=== PATIENT | female | born 1945 | race Caucasian/White ===

== ENCOUNTER 2022-10-21 03:46 | Emergency (ER) | payer MEDICARE ==
[~2022-10-21] VITALS: Ht 154.9 cm; Wt 64.4 kg
[2022-10-21 04:05] VITALS: BP_SYST 141
[2022-10-21] MEDS ORDERED: MORPHINE 4 MG INJ. 4 MG/ML VIAL IVP ONE (04:30)
[2022-10-21] MEDS ORDERED: NACL 0.9% 1,000 ML IV ONE (04:30)
[2022-10-21] MEDS ORDERED: ONDANSETRON HCL 4 MG/2 ML VIAL IVP ONE (04:30)
[2022-10-21 04:45] LABS: HEMOGLOBIN 12.3 g/dL (12.0-16.0); LYMPHOCYTES # (AUTO) 0.7 K/uL (1.0-5.5); MEAN CORPUSCULAR HEMOGLOBIN 31 pg (27-31); MEAN CORPUSCULAR HGB CONC 34 % (32-36); MONOCYTES # (AUTO) 0.5 K/uL (0.0-1.0)
[2022-10-21 04:57] LABS: NEUTROPHILS % (AUTO) 86.5 % (40.0-70.0)
[2022-10-21 05:00] LABS: ANION GAP 8 (5-15); CALCIUM 8.5 mg/dL (8.4-11.0); CHLORIDE 103 mmol/L (98-107); CREATININE 0.74 mg/dL (0.55-1.30); GLUCOSE 80 mg/dL (70-99); UREA NITROGEN, BLOOD 11 mg/dL (8-21)
[2022-10-21 05:04] LABS: BASOPHILS % (AUTO) 0.2 % (0.0-2.0); HEMATOCRIT 36.6 % (36-48); LYMPHOCYTES % (AUTO) 7.7 % (20.5-51.5); MEAN CORPUSCULAR VOLUME 90 fL (79.0-98.0); MONOCYTES % (AUTO) 5.6 % (1.7-9.3); NEUTROPHILS # (AUTO) 7.9 K/uL (1.8-7.7); PLATELET COUNT (AUTO) 226 K/uL (130-430); RED BLOOD CELL COUNT(AUTO) 4.05 MIL/uL (4.2-6.2); RED CELL DISTRIBUTION WIDTH 13.2 % (9.0-15.0); WHITE BLOOD COUNT (AUTO) 9.1 K/uL (4.8-10.8)
[2022-10-21 05:05] LABS: ALANINE AMINOTRANSFERASE 22 U/L (12-78); ALBUMIN 3.5 g/dL (3.4-4.8); ASPARTATE AMINOTRANSFERASE 14 U/L (10-37); LIPASE 73 U/L (73-393); TOTAL BILIRUBIN 0.3 mg/dL (0.0-1.0)
[2022-10-21] MEDS ORDERED: TRAM50TA2 PO (07:10)
[2022-10-21] MEDS ORDERED: OMEP-268 PO (07:10)
[2022-10-21] MEDS ORDERED: MORPHINE 2 MG/ML INJ. SYRINGE IVP ONE (07:15)
[2022-10-21 07:39] LABS: BILIRUBIN,URINE NEGATIVE (NEGATIVE); CLARITY/URINE SL CLOUDY (CLEAR); COLOR,URINE YELLOW (YELLOW); GLUCOSE,URINE NEGATIVE (NEGATIVE); KETONES,URINE NEGATIVE (NEGATIVE); LEUKOCYTE ESTERASE ,URINE 2+ (NEGATIVE); NITRITE, URINE NEGATIVE (NEGATIVE); PH,URINE 7.5 (5.0-8.0); PROTEIN URINE NEGATIVE (NEGATIVE); UROBILINOGEN,URINE 0.2 (0.2-1.0)
[2022-10-21 07:40] LABS: BLOOD, URINE TRACE (NEGATIVE)
[2022-10-21 08:05] LABS: BACTERIA,URINE FEW /HPF (None Seen)
[2022-10-21 08:06] LABS: WBC,URINE 20-50 /HPF (0-3)
[2022-10-21] MEDS ORDERED: NITR-85 PO (08:50)
[2022-10-21] MEDS ORDERED: cefTRIAXone 1 GM in LIDOCAINE 1%, 20 ML MDV 2.1 ML IM ONE (09:00)
[2022-10-21 09:20] VITALS: BP_SYST 135
== END 2022-10-21 09:20 | disposition home or self-care (01) ==
LOC: SED 03:46
DX: R10.13 Epigastric pain (principal); R11.0 Nausea; E11.9 Type 2 diabetes mellitus without complications
CPT/HCPCS: 99285; 74177; 96374; 76705; 96375; 80053; 81000; 83690; 85025; 87086; 36415; 76376; 96376; 96372; J0696; J2001; J2405; J2270 ×2; J7030

== ENCOUNTER 2023-07-27 04:00 | Emergency (ER) | payer MEDICARE ==
[~2023-07-27] VITALS: Ht 172.7 cm; Wt 90.7 kg
[~2023-07-27 04:00] MED LIST: NITR-85 PO; OMEP-268 PO; TRAM50TA2 PO
[2023-07-27 04:02] VITALS: BP_SYST 115; PULSE 73; RESP 22; TEMP 97.6; O2SAT 96
[2023-07-27 04:51] LABS: ANION GAP 8 (5-15); CARBON DIOXIDE 29 mmol/L (23-29); CHLORIDE 99 mmol/L (98-107); CREATININE 0.74 mg/dL (0.55-1.30); GLUCOSE 137 mg/dL (74-106); POTASSIUM 3.5 mmol/L (3.5-5.1); SODIUM SERUM 136 mmol/L (136-145); UREA NITROGEN, BLOOD 15 mg/dL (8-21)
[2023-07-27 04:55] LABS: EOSINOPHILS % (AUTO) 0.1 % (0.0-4.0); HEMATOCRIT 35.2 % (36-48); HEMOGLOBIN 11.9 g/dL (12.0-16.0); LYMPHOCYTES # (AUTO) 0.7 K/uL (1.0-5.5); LYMPHOCYTES % (AUTO) 6.9 % (20.5-51.5); MEAN CORPUSCULAR HEMOGLOBIN 31 pg (27-31); MEAN CORPUSCULAR HGB CONC 34 % (32-36); MEAN CORPUSCULAR VOLUME 91 fL (79.0-98.0); MONOCYTES # (AUTO) 0.5 K/uL (0.0-1.0); MONOCYTES % (AUTO) 4.8 % (1.7-9.3); NEUTROPHILS # (AUTO) 8.4 K/uL (1.8-7.7); NEUTROPHILS % (AUTO) 88.2 % (40.0-70.0); PLATELET COUNT (AUTO) 223 K/uL (130-430); RED BLOOD CELL COUNT(AUTO) 3.89 MIL/uL (4.2-6.2); RED CELL DISTRIBUTION WIDTH 13.3 % (9.0-15.0); WHITE BLOOD COUNT (AUTO) 9.5 K/uL (4.8-10.8)
[2023-07-27 04:56] LABS: ALANINE AMINOTRANSFERASE 19 U/L (12-78); ALBUMIN 3.3 g/dL (3.4-4.8); ASPARTATE AMINOTRANSFERASE 20 U/L (10-37); BILIRUBIN,DIRECT 0.1 mg/dL (0.0-0.3); TOTAL BILIRUBIN 0.2 mg/dL (0.0-1.0); TOTAL PROTEIN, SERUM 6.8 g/dL (6.4-8.3)
[2023-07-27] MEDS: MORPHINE 4 MG INJ. 4 MG/ML VIAL IVP ONE (05:05)
[2023-07-27] MEDS: NACL 0.9% 1,000 ML IV ONE (05:08)
[2023-07-27 05:16] LABS: BILIRUBIN,URINE NEGATIVE (NEGATIVE); BLOOD, URINE NEGATIVE (NEGATIVE); CLARITY/URINE CLEAR (CLEAR); COLOR,URINE YELLOW (YELLOW); GLUCOSE,URINE NEGATIVE (NEGATIVE); KETONES,URINE TRACE (NEGATIVE); LEUKOCYTE ESTERASE ,URINE TRACE (NEGATIVE); NITRITE, URINE NEGATIVE (NEGATIVE); PROTEIN URINE TRACE (NEGATIVE); UROBILINOGEN,URINE 0.2 (0.2-1.0)
[2023-07-27 06:19] LABS: BACTERIA,URINE RARE /HPF (None Seen)
[2023-07-27] MEDS: cefTRIAXone 1 GM IVPB PREMIX 50 ML IV ONE (08:29)
[2023-07-27 11:10] VITALS: BP_SYST 114; PULSE 84; RESP 19; TEMP 98.4; O2SAT 97
== END 2023-07-27 11:00 | disposition short-term general hospital (02) ==
LOC: SED 04:00
DX: N39.0 Urinary tract infection, site not specified (principal); M25.551 Pain in right hip; E11.649 Type 2 diabetes mellitus with hypoglycemia without coma; R55 Syncope and collapse; I10 Essential (primary) hypertension; Z79.899 Other long term (current) drug therapy
CPT/HCPCS: 99285; 70450; 96365; 71045; 96375; 80076; 80048; 81001; 85025; 87040; 84484; 36415; 93005; 72125; 72192; 82948; 83605; 81000; 81015; J0696; J2270